=== PATIENT | female | born 1995 | race Caucasian/White ===

== ENCOUNTER 2016-03-15 20:48 | Inpatient (IN) | payer OTHER ==
[~2016-03-15] VITALS: Ht 162.6 cm; Wt 76.2 kg
[~2016-03-15 20:48] MED LIST: ALBUTEROL SULF8.5 GM IH; BACTRIM,SEPT1 TABLET PO; CHROMAGEN,1 CAPSULE PO; FIORICET 50-301 EACH PO; MACROBID100 MG PO; MOTRIN600 MG PO; NAPROSYN500 MG PO; PHENERGAN-CODE120 ML PO; PRENATAL TABLE1 EAC3 PO; ZITHROMAX250 MG PO
[2016-03-15 21:07] VITALS: BP 118/72
[2016-03-15] MEDS ORDERED: MACROBID100 MG PO (21:23)
[2016-03-15 22:08] VITALS: BP 125/74
[2016-03-15 23:03] VITALS: BP 120/69
[2016-03-15 23:06] LABS: EOSINOPHIL COUNT 0.4 K/uL (0-0.3); HEMATOCRIT 35.9 % (36.0-46.0); IMMATURE GRANULOCYTE (%) 0.6 % (0.0-0.7); IMMATURE GRANULOCYTE COUNT 0.1 K/uL; LYMPHOCYTE COUNT 2.3 K/uL (1.0-2.8); MCH 25.5 PG (29.0-34.0); MCHC 31.2 G/DL (30.0-36.0); MCV 81.6 FL (83-99); MEAN PLAT.VOLUME 11.6 uM^3 (9.5-12.4); MONOCYTE (%) 8.3 % (3-12); MONOCYTE COUNT 0.9 K/uL (0-0.8); NEUTROPHIL COUNT 7.2 K/uL (1.8-6.4); PLAT.SUFFICIENCY NORMAL; PLATELET COUNT 200 K/uL (156-360); RBC DIS.WIDTH-CV 20.5 % (11.8-14.6); RBC DIS.WIDTH-SD 61.8 % (39-53); WHITE BLOOD COUNT 10.9 K/uL (4.1-10.2)
[2016-03-15 23:21] LABS: AMPHETAMINES QUANT VALUE 0 NG/ML; BARBITUATES QUANT VALUE 0 NG/ML; BENZODIAZEPINES QUANT VALUE 0 NG/ML; BENZODIAZEPINES, URINE SCREEN Negative (200 ng/mL); MARIJUANA QUANT VALUE 0 NG/ML; OPIATES QUANTITATIVE VALUE 0 NG/ML; PHENCYCLIDINE QUANT VALUE 0 NG/ML
[2016-03-16] VITALS (23 sets, daily range): BP systolic 100–149; BP diastolic 55–84
[2016-03-17 07:48] LABS: EOSINOPHIL (%) 4.5 % (0-5); EOSINOPHIL COUNT 0.6 K/uL (0-0.3); IMMATURE GRANULOCYTE (%) 0.6 % (0.0-0.7); IMMATURE GRANULOCYTE COUNT 0.1 K/uL; LYMPHOCYTE COUNT 2.2 K/uL (1.0-2.8); MONOCYTE (%) 7.1 % (3-12); MONOCYTE COUNT 0.9 K/uL (0-0.8); NEUTROPHIL (%) 70.3 % (45-76); NEUTROPHIL COUNT 9.1 K/uL (1.8-6.4)
[2016-03-17 07:55] VITALS: BP 118/70
[2016-03-17 08:00] LABS: HEMATOCRIT 34.5 % (36.0-46.0); MCH 25.5 PG (29.0-34.0); MCHC 30.7 G/DL (30.0-36.0); MCV 82.9 FL (83-99); RBC DIS.WIDTH-CV 21.2 % (11.8-14.6); RBC DIS.WIDTH-SD 64.2 % (39-53); RED BLOOD COUNT 4.16 M/uL (3.80-5.20); WHITE BLOOD COUNT 12.9 K/uL (4.1-10.2)
[2016-03-17 08:55] LABS: PLAT.SUFFICIENCY ADEQUATE; PLATELET COUNT 155 K/uL (156-360); USER ID BLP
[2016-03-17 15:53] VITALS: BP 120/62
[2016-03-17 23:01] VITALS: BP 115/56
[2016-03-18 07:37] VITALS: BP 105/58
[2016-03-18] MEDS ORDERED: IBUPROFEN800 MG PO (08:21)
== END 2016-03-18 13:00 | disposition home or self-care (01) | DRG 775 ==
LOC: LDRP-OP 20:48 → 2WEST 20:49 → LDRP-OP 04-16 21:50
PROVIDERS: Advanced Practice Midwife
PROC: 0HQ9XZZ Repair Perineum Skin, External Approach (ICD-10-PCS; principal; 2016-03-16)
PROC: 00HU33Z Insertion of Infusion Device into Spinal Canal, Percutaneous Approach (ICD-10-PCS; principal; 2016-03-16)
PROC: 3E0R3CZ (ICD-10-PCS; principal; 2016-03-16)
PROC: 10E0XZZ Delivery of Products of Conception, External Approach (ICD-10-PCS; principal; 2016-03-16)
DX: O70.0 First degree perineal laceration during delivery (principal); O69.81X0 Labor and delivery complicated by cord around neck, without compression, not applicable or unspecified; Z37.0 Single live birth; Z3A.40 40 weeks gestation of pregnancy; O99.824 Streptococcus B carrier state complicating childbirth; O99.02 Anemia complicating childbirth; D64.9 Anemia, unspecified; O99.344 Other mental disorders complicating childbirth; F98.8 Other specified behavioral and emotional disorders with onset usually occurring in childhood and adolescence
CPT/HCPCS: 85025; C1755; G0378; J1200; J2300; J3010; J3370; J7120